=== PATIENT | female | born 1945 | race Caucasian/White ===

== ENCOUNTER 2021-07-28 13:13 | Emergency (ER) | payer MEDICARE, MEDICAID, SELFPAY ==
[2021-07-28 13:23] VITALS: BP 141/62; PULSE 82; RESP 13; O2SAT 97; BMI 27.2
--- NOTE | 2021-07-28 13:55 | ECG_ITS ---
[facility] Test Date: 2021-07-28 Pat Name: Johanna Baldwin Department: Room: Gender: Female Senior Radiation Protection Technician: : 1945 Requested By: Tommie Brian Order Number: [id number] Ben MD: Risa Sheikh M.D. Measurements Intervals [place] Rate: 90 P: 62 [place]: 188 QRS: 31 QRSD: 83 T: 64 QT: 358 QTc: 440 Interpretive Statements SINUS RHYTHM Compared to ECG 04/29/2018 13:58:31 Ectopic atrial rhythm no longer present Atrial abnormality no longer present Left-axis deviation no longer present ST (T wave) deviation no longer present Electronically Signed On 07-29-2021 19:53:19 MONITOR CAR OPERATOR by Risa Sheikh M.D. [email or web address]/[id number] f
--- NOTE | 2021-07-28 14:16 | W.ED.SYNCOPE ---
HPI - Syncope General: Chief Complaint: Syncope Stated Complaint: SYNCOPAL EPISODE Time Seen by Provider: 07/28/21 13:46 History of Present Illness: HPI narrative: 75-year-old female brought in by EMS from a local residential. She really cannot give any meaningful information she has Alzheimer's dementia. Almost every question I asked her she tells me that she is fine. A few questions she answered yes and no to when I am not sure I get any real accurate information from her. EMS reported that the residential and called a nurse went into her room there and she seemed unresponsive he did a sternal rub and said she did not have a pulse and then she suddenly became responsive they have called EMS when EMS arrived she was eating lunch in the dining room. When she arrives here she is afebrile her vital signs are stable and she has no obvious evidence of any injury or problem. Again she denies everything and tells me she is fine but it is very doubtful that she has any real understanding of the questions I am asking her. Associated symptoms: Deny abdominal pain, chest pain, fever(s) or short of breath History: other (dementia) Review of Systems Const: Denies: fever(s), chills, body aches, change in appetite, fatigue or malaise ENMT: Denies: throat pain, ear or mastoid pain, nasal discharge or nasal congestion Card: Denies: chest pain Resp: Denies: dyspnea, productive cough or non-productive cough GI: Denies: abdominal pain : Denies: flank pain, difficulty voiding, dysuria, urinary frequency or urinary urgency Skin/Breast: Denies: rash or pruritus PFSH ED PFSH: Medical History Hyperlipidemia Obesity Surgical History S/P cataract surgery Family History Other Cancer Social History Smoking and tobacco status: never smoked Alcohol intake: never Housing: Correction Physical Exam Const: COMMON NORMALS: no acute distress GENERAL APPEARANCE: cooperative ORIENTATION/CONSCIOUSNESS: Yes awake HENMT: COMMON NORMALS: normocephalic, atraumatic and hearing grossly normal bilaterally HEAD & SCALP: normocephalic and atraumatic Eye: COMMON NORMALS: Equal, round and reactive pupils present, EOMs intact bilaterally, conjunctivae normal and no scleral icterus CONJUNCTIVA: Yes conjunctivae normal PUPIL: Yes Equal, round and reactive pupils present Neck/C-Spine: COMMON NORMALS: no JVD Resp: COMMON NORMALS: normal respiratory effort, No retractions, No use of accessory muscles and clear to auscultation bilaterally AUSCULTATION: clear to auscultation bilaterally Cardio: COMMON NORMALS: no JVD, regular rate, regular rhythm and No murmurs present (Cardio) RATE: regular rate RHYTHM: regular rhythm GI: COMMON NORMALS: Soft to palpation and No hepatosplenomegaly present AUSCULTATION: Yes normoactive bowel sounds PALPATION: Yes Soft to palpation, No Tenderness to palpation present (GI), No Guarding due to palpation present (GI) and Yes No hepatosplenomegaly present Extremity: COMMON NORMALS: normal to inspection, capillary refill normal, no clubbing, cyanosis or edema, no calf tenderness and no pedal edema Skin: COMMON NORMALS: no rashes or lesions noted GENERAL SKIN EXAM: no rashes or lesions noted Course Vital Signs: Vital signs: Vital Signs Pulse Rate 82 07/28/21 13:23 Respiratory Rate 13 07/28/21 13:23 Blood Pressure 141/62 07/28/21 13:23 Pulse Oximetry 97 07/28/21 13:23 MDM - Syncope MDM Narrative: Medical decision making narrative: No focal neurologic deficits at this time. Patient has Alzheimer's. No other abnormalities. discharge back to the residential. Lab Data: Labs: Lab Results 07/28/21 07/28/21 14:22 14:22 WBC 6.3 10^3/uL 10^3/ uL (4.0-10.0) RBC 4.24 10^6/uL 10^6 /uL (4.1-5.3) Hgb 12.7 g/dL g/dL (11.5-15.3) Hct 40.0 % % (37.0-47.0) MCV 94.3 fl fl (81-99) MCH 30.0 pg pg (28.0-34.0) MCHC 31.8 g/dL g/dL (30.0-36.0) RDW 15.1 % % (12.1-15.1) Plt Count 207 10^3/cmm 10^3 /cmm (130-400) MPV 12.5 fL H fL (7.4-10.4) Neut % (Auto) 70.0 % % Lymph % (Auto) 15.7 % % [place] % (Auto) 12.4 % % Eos % (Auto) 0.8 % % Baso % (Auto) 0.8 % % Neut # (Auto) 4.42 10^3/uL 10^3 /uL (1.8-7.7) Lymph # (Auto) 1.0 10^3/uL 10^3/ uL (0.8-4.8) [place] # (Auto) 0.8 10^3/uL 10^3/ uL (0.2-0.9) Eos # (Auto) 0.1 10^3/uL 10^3/ uL (0.0-0.8) Baso # (Auto) 0.1 10^3/uL 10^3/ uL (0.0-0.1) Nucleated RBC % (a uto) 0 % % Nucleated RBCs # 0.0 /100WBC /100W BC Sodium 139 mmol/L mmol/L (136-145) Potassium 4.3 mmol/L mmol/L (3.5-5.1) Chloride 101 mmol/L mmol/L (98-107) Carbon Dioxide 23 mmol/L mmol/L (22-29) Anion Gap 19.3 H (5-19) BUN 14 mg/dL mg/dL (8-23) Creatinine 0.9 mg/dL mg/dL (0.5-0.9) GFR Calculation Not Reportable Glucose 116 mg/dL H mg/dL (65-115) Calculated Osmolal ity 289 mOsm/kg mOsm/ kg (285-295) Calcium 9.3 mg/dL mg/dL (8.5-10.5) Discharge Plan Discharge Patient Disposition: Home Clinical Impression: Alzheimer's dementia Condition: Stable Prescriptions: No Action olanzapine [Zyprexa] 5 mg tablet 5 mg PO BID RF: 0 olanzapine [Zyprexa] 2.5 mg tablet 2.5 mg PO .COMPLEX Qty: 30 RF: 0 senna 8.6 mg capsule 8.6 mg PO DAILY PRNRF: 0 amlodipine [Norvasc] 5 mg tablet 5 mg PO DAILY RF: 0 simvastatin [Zocor] 20 mg tablet 20 mg PO DAILY RF: 0 acetaminophen [Tylenol Arthritis Pain] 650 mg tablet extended release 650 mg PO .q4hrs PRNRF: 0 bisacodyl 5 mg tablet 10 mg PO DAILY RF: 0 magnesium hydroxide [Milk of Magnesia] 400 mg/5 mL suspension 30 ml PO DAILY PRNRF: 0 calcium carbonate 400 mg/5 mL suspension 30 mg PO .q4hrs PRNRF: 0 quetiapine [Seroquel] 25 mg tablet 25 mg PO DAILY Qty: 30 RF: 0 Discharge Orders: Discharge ED (Routine); Ordered 07/28/21 Ordered By: Tommie Marshall Referrals: Fantasma Mathews MD [Primary Care Provider] - Patient Instructions: Opioid Safety Coding Level of Care Code ED [employer] Union Business Representative for Eileen Fwd Exam Comprehensive
[2021-07-28 14:31] LABS: Basophils # 0.1 10^3/uL (0.0-0.1); Basophils % 0.8 %; Eosinophils # 0.1 10^3/uL (0.0-0.8); Eosinophils % 0.8 %; Hemoglobin 12.7 g/dL (11.5-15.3); Lymphocytes % 15.7 %; Mean Corpuscular HGB Conc 31.8 g/dL (30.0-36.0); Mean Corpuscular Volume 94.3 fl (81-99); Mean Platelet Volume 12.5 fL (7.4-10.4); Monocytes # 0.8 10^3/uL (0.2-0.9); Monocytes % 12.4 %; Neutrophils # 4.42 10^3/uL (1.8-7.7); Nucleated Red Blood Cells % 0 %; Platelet Count 207 10^3/cmm (130-400); Red Blood Count 4.24 10^6/uL (4.1-5.3); Red Cell Distribution Width 15.1 % (12.1-15.1); White Blood Count 6.3 10^3/uL (4.0-10.0)
[2021-07-28 15:04] LABS: Anion Gap 19.3 (5-19); Blood Urea Nitrogen 14 mg/dL (8-23); Calcium 9.3 mg/dL (8.5-10.5); Carbon Dioxide 23 mmol/L (22-29); Chloride 101 mmol/L (98-107); Glucose 116 mg/dL (65-115); Osmolality Calculated 289 mOsm/kg (285-295); Potassium 4.3 mmol/L (3.5-5.1); Sodium 139 mmol/L (136-145)
== END 2021-07-28 15:51 | disposition home or self-care (01) ==
PROVIDERS: Emergency Provider Family Medicine; PCP Internal Medicine
DX: G30.9 Alzheimer's disease, unspecified (principal); F02.80 Dementia in other diseases classified elsewhere, unspecified severity, without behavioral disturbance, psychotic disturbance, mood disturbance, and anxiety; E78.5 Hyperlipidemia, unspecified
CPT/HCPCS: 36415; 80048; 85025; 93005; 99282

== ENCOUNTER 2022-03-10 11:56 | Outpatient (CLI) | payer MEDICARE, MEDICAID, SELFPAY ==
--- NOTE | 2022-03-10 13:30 | XR_ITS ---
WS: [id number] SCREENING DEXA SCAN [employer] CLINICAL INFORMATION: SCREENING COMPARISON: None. FINDINGS: The L1-L4 bone mineral density measures 1.237 g/cm2. This corresponds to a T score score of 0.5 and Z score of 1.7. Left femoral neck bone mineral density measures 0.832 g/cm2. This corresponds to a T score of -1.4 an d Z score of 0.1. Right femoral neck bone mineral density measures 0.737 g/cm2. This corresponds to a T score -2.1of an d Z score of -0.6. Mean femoral neck bone mineral density measures 0.785 g/cm2. This corresponds to a T score of -1.8 an d Z score of -0.2. XR/XR DEXA axial skeleton* 60095 IMPRESSION: Normal bone mineralization lumbar spine although spuriously elevated due to end plate sclerosis. Osteopenia in the femoral necks. Patient's FRAX calculated 10 year probability for major osteoporotic fracture i s 19.4 % and osteoporotic hip fracture is 7.0%.
== END 2022-03-10 11:57 | disposition home or self-care (01) ==
LOC: RAD 11:58
PROVIDERS: PCP Internal Medicine; Visit Provider Nurse Practitioner Family
DX: U07.1 COVID-19 (principal); E66.9 Obesity, unspecified; E78.5 Hyperlipidemia, unspecified; G30.9 Alzheimer's disease, unspecified; I10 Essential (primary) hypertension
CPT/HCPCS: 77080; 99213

== ENCOUNTER 2022-11-10 16:22 | Outpatient (CLI) | payer MEDICARE, MEDICAID, SELFPAY ==
[2022-11-10 16:56] LABS: Anion Gap 13.2 (5-19); Blood Urea Nitrogen 12 mg/dL (8-23); Calcium 8.7 mg/dL (8.5-10.5); Carbon Dioxide 29 mmol/L (22-29); Chloride 106 mmol/L (98-107); Glucose 117 mg/dL (65-115); Osmolality Calculated 299 mOsm/kg (285-295); Potassium 4.2 mmol/L (3.5-5.1); Sodium 144 mmol/L (136-145)
== END 2022-11-10 16:23 | disposition home or self-care (01) ==
PROVIDERS: PCP Internal Medicine; Visit Provider Internal Medicine
DX: Z01.89 Encounter for other specified special examinations (principal)
CPT/HCPCS: 80048

== ENCOUNTER → 2023-05-17 14:06 | Outpatient (BNVA) | payer MEDICARE, MEDICAID, SELFPAY | PROVIDERS: PCP Internal Medicine; Visit Provider Internal Medicine Cardiovascular Disease | DX: I10 Essential (primary) hypertension (principal) | CPT/HCPCS: 99214 ==

== ENCOUNTER 2024-01-05 16:35 | Inpatient (IN) | payer MEDICARE, MEDICAID, SELFPAY ==
[2024-01-05 16:36] VITALS: BP 160/71; PULSE 89; RESP 16; TEMP 36.7; O2SAT 95; BMI 34.3
--- NOTE | 2024-01-05 16:38 | ECG_ITS ---
[facility] Test Date: 2024-01-05 Pat Name: Johanna Baldwin Department: Room: Gender: Female Forming Yardage Control Operator: : 1945 Requested By: Tommie Brian Order Number: [id number] Ben MD: Buck Brothers M.D. Measurements Intervals [place] Rate: 88 P: 55 [place]: 203 QRS: 34 QRSD: 88 T: 53 QT: 367 QTc: 446 Interpretive Statements SINUS RHYTHM POSSIBLE LEFT ATRIAL ENLARGEMENT [-0.1mV P-WAVE IN V1/V2] NONSPECIFIC T-WAVE ABNORMALITY Compared to ECG 07/28/2021 14:38:50 T-wave abnormality now present Electronically Signed On 01-06-2024 13:38:34 CDT by Buck Brothers M.D. [id number]
--- NOTE | 2024-01-05 16:38 | XRR_ITS ---
PROCEDURE INFORMATION: Exam: XR Chest Exam date and time: 01/05/2024 4:46 PM Age: 78 years old Clinical indication: Dyspnea; Additional info: Dyspnea/cough TECHNIQUE: Imaging protocol: Radiologic exam of the chest. Views: 1 view. COMPARISON: CR XR chest 1V [id number] 04/29/2018 1:58 PM FINDINGS: Lungs: Subtle opacities in the right suprahilar station and left infrahilar station. Pleural spaces: Unremarkable. No pleural effusion. No pneumothorax. Heart/Mediastinum: Unremarkable. No cardiomegaly. Bones/joints: Unremarkable. XR/XR chest 1V portable [id number] IMPRESSION: Subtle opacities in the right suprahilar station and left infrahilar station.
--- NOTE | 2024-01-05 16:49 | ED_ITS ---
HPI - Weakness 2 General: Chief complaint: Weakness Stated complaint: weakness, fever Time Seen by Provider: 01/05/24 16:36 Source: patient Mode of arrival: EMS History of Present Illness: 78-year-old male presents to the emergen cy room with complaints of weakness and fever she comes in from [facility]. She has dementia. EMS reports that they had stated the O2 sat was in the 80% on room air on 2 L they reported she got to 90 on 3 EMS reported she was at 95 or greater. On arrival here on room air she has an oxygen saturation of 92% to 95%. They also reports a temp up to 100.3. [place] temperature on arrival here is 98 1. Patient has dementia. Gives no verbal response to any history. MD Complaint: generalized weakness Review of Systems 2 General: Reports: ROS unobtainable due to mental status Resp: Denies: dyspnea GI: Denies: abdominal pain : Denies: urinary frequency or urinary urgency Musc: Denies: neck pain or back pain Skin/Breast: Denies: rash PFSH ED 2 PFSH: Medical History Obesity Hyperlipidemia Surgical History S/P cataract surgery Family History Other Cancer Social History Smoking and tobacco/nicotine status: never used tobacco/nicotine Alcohol intake: never Substance/Drug Use: never Housing: Care Home Physical Exam 2 Const: GENERAL APPEARANCE: cooperative and comfortable O RIENTATION/CONSCIOUSNESS: Yes awake HENMT: COMMON NORMALS: normocephalic, atraumatic and hearing grossly normal bilaterally HEAD & SCALP: normocephalic and atraumatic Resp: COMMON NORMALS: normal respiratory effort, No retractions and No use of accessory muscles AUSCULTATION: crackles Cardio: COMMON NORMALS: regular rate, regular rhythm and No murmurs present (Cardio) RATE: regular rate RHYTHM: regular rhythm GI: COMMON NORMALS: Soft to palpation and No hepatosplenomegaly present A USCULTATION: Yes normoactive bowel sounds PALPATION: Yes Soft to palpation, No Tenderness to palpation present (GI), No Guarding due to palpation present (GI) and Yes No hepatosplenomegaly present Extremity: COMMON NORMALS: normal to inspection, capillary refill normal, no clubbing, cyanosis or edema, no calf tenderness and no pedal edema Neuro: OTHER: Patient aphasic likely due to her dementia. No verbal response to questions. Per long term report this is baseline Skin: COMMON NORMALS: no rashes or lesions noted GENERAL SKIN EXAM: no rashes or lesions noted Course 2 Vital Signs: Vital signs: Vital Signs Temperature 99.2 F 01/06/24 04:00 Pulse Rate 83 01/06/24 04:00 Respiratory Rate 19 H 01/06/24 04:00 Blood Pressure 118/77 01/06/24 04:00 Pulse Oximetry 92 01/06/24 04:00 Oxygen Delivery Me thod Nasal Cannula 01/06/24 04:00 Oxygen Flow Rate 2 01/05/24 16:36 MDM - Weakness Medical Decision Making Reported fever and hypotension at the nursing however she does not have this while she is here. However she is not able to provide us any history because of her dementia. Chest x-ray there is some subtle opacities possible pneumonia. She also has a mild cystitis. Recommend observation and initiation of IV antibiotics repeat testing and reevaluation. Placed on observation discussed with hospitalist orders written Medical Records I reviewed the patient's medical records. Lab Data I reviewed the patient's lab results. 01/05/24 17:20 01/05/24 17:20 Radiology Impressions Chest X-Ray 01/05/24 16:38 IMPRESSION: Subtle opacities in the right suprahilar station and left infrahilar station. Laboratory Results WBC 9.51 10^3/uL (3.29-11.43) 01/05/24 17:20 RBC 3.73 10^6/uL (3.85-5.65) L 01/05/24 17:20 Hgb 11.20 g/dL (11.27-16.99) L 01/05/24 17:20 Hct 34.2 % (36-47) L 01/05/24 17:20 MCV 91.7 fl (85-98) 01/05/24 17:20 MCH 30.0 pg (27-33) 01/05/24 17:20 MCHC 32.7 g/dL (30-55) 01/05/24 17:20 RDW 15.7 % (12.1-15.1) H 01/05/24 17:20 Plt Count 192 10^3/cmm (157-399) 01/05/24 17:20 MPV 12.4 fL (7.4-10.4) H 01/05/24 17:20 Neut % (Auto) 74.7 % 01/05/24 17:20 Lymph % (Auto) 14.6 % 01/05/24 17:20 [place] % (Auto) 9.0 % 01/05/24 17:20 Eos % (Auto) 0.9 % 01/05/24 17:20 Baso % (Auto) 0.4 % 01/05/24 17:20 Neut # (Auto) 7.09 10^3/uL (1.8-7.7) 01/05/24 17:20 Lymph # (Auto) 1.4 10^3/uL (0.8-4.8) 01/05/24 17:20 [place] # (Auto) 0.9 10^3/uL (0.2-0.9) 01/05/24 17:20 Eos # (Auto) 0.1 10^3/uL (0.0-0.8) 01/05/24 17:20 Baso # (Auto) 0.0 10^3/uL (0.0-0.1) 01/05/24 17:20 Nucleated RBC % (auto) 0 % 01/05/24 17:20 Nucleated RBCs # 0.0 /100WBC 01/05/24 17:20 Sodium 139 mmol/L (136-145) 01/05/24 17:20 Potassium 3.6 mmol/L (3.5-5.1) 01/05/24 17:20 Chloride 101 mmol/L (98-107) 01/05/24 17:20 Carbon Dioxide 26 mmol/L (22-29) 01/05/24 17:20 Anion Gap 15.6 (5-19) 01/05/24 17:20 BUN 25 mg/dL (8-23) H 01/05/24 17:20 Creatinine 0.8 mg/dL (0.5-0.9) 01/05/24 17:20 GFR Calculation Not Reportable 01/05/24 17:20 Glucose 126 mg/dL (65-115) H 01/05/24 17:20 Calculated Osmolality 294 mOsm/kg (285-295) 01/05/24 17:20 Lactic Acid 0.7 mmol/L (0.5-2.2) 01/05/24 17:20 Calcium 9.2 mg/dL (8.5-10.5) 01/05/24 17:20 Total Bilirubin 0.6 mg/dL (0.15-1.2) 01/05/24 17:20 AST 27 U/L (0-32) 01/05/24 17:20 ALT 17 U/L (0-33) 01/05/24 17:20 Alkaline Phosphatase 109 U/L (35-105) H 01/05/24 17:20 NT-Pro-B Natriuret Pep 433 pg/mL (0-450) 01/05/24 17:20 Total Protein 7.2 g/dL (6.6-8.7) 01/05/24 17:20 Albumin 3.8 g/dL (3.5-5.2) 01/05/24 17:20 Globulin 3.4 g/dL (1.3-4.6) 01/05/24 17:20 Procalcitonin 0.10 ng/mL (0-0.5) 01/05/24 17:20 Urine Color Yellow (Yellow) 01/05/24 17:31 Urine Appearance Clear (CLEAR) 01/05/24 17:31 Urine pH 5 (5-7) 01/05/24 17:31 Ur Specific [place] 1.015 (1.005-1.030) 01/05/24 17:31 Urine Protein Neg (Negative) 01/05/24 17:31 Urine Glucose (UA) Norm (Normal) 01/05/24 17:31 Urine Ketones 1+ (Negative) H 01/05/24 17:31 Urine Blood 2+ (Negative) H 01/05/24 17:31 Urine Nitrate Negative (Negative) 01/05/24 17:31 Urine Bilirubin Neg (Negative) 01/05/24 17:31 Urine Urobilinogen Norm mg/dL (Negative) 01/05/24 17:31 Ur Leukocyte Esterase Trace (Negative) H 01/05/24 17:31 Urine RBC None /hpf (0-2) 01/05/24 17:31 Urine WBC 15-25 /hpf (0-5) H 01/05/24 17:31 Ur Squamous Epith Cells 0-4 /hpf (0-5) H 01/05/24 17:31 Amorphous Sediment Not Reportable 01/05/24 17:31 Urine Bacteria 2+ /hpf (NONE) H 01/05/24 17:31 Hyaline Casts 0-4 /lpf H 01/05/24 17:31 Urine Mucus 1+ /hpf 01/05/24 17:31 All radiology interpretation(s) finalized by discharge Discharge Plan Discharge Patient Disposition: Admitted As Inpatient Admit Provider: Sanjiv Betancourt Clinical Impression: Pneumonia, Cystitis, Dementia Condition: Stable Discharge Diet: Usual diet Discharge Activity: Resume usual activity Coding Level of Care Code ED Corporate Tax Preparer for Eileen Mitchell
[2024-01-05 17:33] LABS: Basophils % 0.4 %; Eosinophils # 0.1 10^3/uL (0.0-0.8); Eosinophils % 0.9 %; Hematocrit 34.2 % (36-47); Lymphocytes # 1.4 10^3/uL (0.8-4.8); Lymphocytes % 14.6 %; Mean Corpuscular HGB Conc 32.7 g/dL (30-55); Mean Corpuscular Volume 91.7 fl (85-98); Mean Platelet Volume 12.4 fL (7.4-10.4); Monocytes # 0.9 10^3/uL (0.2-0.9); Neutrophils # 7.09 10^3/uL (1.8-7.7); Neutrophils % 74.7 %; Nucleated Red Blood Cells % 0 %; Platelet Count 192 10^3/cmm (157-399); Red Blood Count 3.73 10^6/uL (3.85-5.65); Red Cell Distribution Width 15.7 % (12.1-15.1); White Blood Count 9.51 10^3/uL (3.29-11.43)
[2024-01-05 17:43] VITALS: PULSE 82; O2SAT 93
[2024-01-05 17:53] LABS: Alanine Aminotransferase 17 U/L (0-33); Albumin Level 3.8 g/dL (3.5-5.2); Alkaline Phosphatase 109 U/L (35-105); Anion Gap 15.6 (5-19); Aspartate Amino Transferase 27 U/L (0-32); Blood Urea Nitrogen 25 mg/dL (8-23); Calcium 9.2 mg/dL (8.5-10.5); Carbon Dioxide 26 mmol/L (22-29); Chloride 101 mmol/L (98-107); Creatinine Clr Calc Pharmacy 68.2754; Globulin 3.4 g/dL (1.3-4.6); Glucose 126 mg/dL (65-115); Osmolality Calculated 294 mOsm/kg (285-295); Potassium 3.6 mmol/L (3.5-5.1); Sodium 139 mmol/L (136-145); Total Bilirubin 0.6 mg/dL (0.15-1.2); Total Protein 7.2 g/dL (6.6-8.7)
[2024-01-05 18:04] LABS: Add Urine Microscopic? YES; Bilirubin Urine Neg (Negative); Blood Urine 2+ (Negative); Glucose Urine UA Norm (Normal); Ketones Urine 1+ (Negative); Leukocyte Esterase Urine Trace (Negative); Nitrate Urine Negative (Negative); Protein Urine Neg (Negative); Specific Gravity, Urine 1.015 (1.005-1.030); Urine Appearance Clear (CLEAR); Urine Color Yellow (Yellow); Urobilinogen Urine Norm (Negative); pH Urine 5 (5-7)
[2024-01-05 18:12] LABS: Add Urine Culture? Yes; Bacteria Urine 2+ /hpf; Hyaline Casts Urine 0-4 /lpf; Mucus Urine 1+ /hpf; Squamous Epithelial Cell Urine 0-4 /hpf (0-5); WBC Urine 15-25 /hpf (0-5)
[2024-01-05 18:57] LABS: Lactic Sepsis W/Reflex 0.7 mmol/L (0.5-2.2)
[2024-01-05 19:07] LABS: NT Pro B Type Natriuretic Pept 433 pg/mL (0-450)
[2024-01-05] MEDS: meropenem 1,000 MG in sodium chloride 0.9% (plus) 50 ML 100 MG IV ×2 (19:18→23:19)
[2024-01-05 19:58] VITALS: BP 154/64; PULSE 64; RESP 16; O2SAT 91
--- NOTE | 2024-01-05 19:59 | P.HP_ITS ---
Providers/Chief Complaint 2 Admitting Physician: Sanjiv Betancourt MD Primary Care Provider: Fantasma Mathews MD Chief Complaint: weakness, fever History of Present Illness Johanna Baldwin is a 78 year old female who presents for further evaluation of generalized weakness and fever. She has a history of dementia, non verbal. History from patient is limited. Per reports, she was noted to be hypoxic- 80% on room air and to have a temperature of 100.3. In the ER, she was found to have pneumonia and possible UTI. Review of Systems 2 General: Reports: ROS unobtainable due to mental status Medications/Allergies Home Medications Medication Instructions Recorded Confirmed Last Taken Type acetaminophen 650 mg 650 mg PO .q4hrs PRN 11/12/19 05/28/22 Unknown History tablet,extended release (Tylenol Arthritis Pain) amlodipine 5 mg tablet (Norvasc) 5 mg PO DAILY 11/12/19 05/28/22 Unknown History bisacodyl 5 mg tablet 10 mg PO DAILY 11/12/19 05/28/22 Unknown History calcium carbonate 400 mg/5 mL oral 30 mg PO .q4hrs PRN 11/12/19 05/28/22 Unknown History suspension magnesium hydroxide 400 mg/5 mL 30 ml PO DAILY PRN 11/12/19 05/28/22 Unknown History oral suspension (Milk of Magnesia) sennosides 8.6 mg capsule (senna) 8.6 mg PO DAILY PRN 11/12/19 05/28/22 Unknown History simvastatin 20 mg tablet (Zocor) 20 mg PO DAILY 11/12/19 05/28/22 Unknown History olanzapine 2.5 mg tablet (Zyprexa) 2.5 mg PO .COMPLEX #30 tabs 12/19/20 05/28/22 Unknown Rx olanzapine 5 mg tablet (Zyprexa) 5 mg PO BID 12/19/20 05/28/22 Unknown History dextromethorphan-guaifenesin 10 10 ml PO Q4H PRN 09/30/21 05/28/22 Unknown History mg-100 mg/5 mL oral liquid (Julia-Tussin DM) loratadine 10 mg tablet (Claritin) 10 mg PO DAILY 09/30/21 05/28/22 Unknown History quetiapine 50 mg tablet 75 mg (1.5 x 50 mg) PO BID #60 tabs 12/07/21 05/28/22 Unknown Rx cefdinir 300 mg capsule 300 mg PO BID #14 caps 01/05/24 Unknown Rx Allergies Allergy/AdvReac Type Severity Reaction Status Date / Time bee pollen Allergy ALGY-Anaphy Verified 01/05/24 16:43 laxis lidocaine Allergy ALGY-Swell Verified 01/05/24 16:43 Lip/Tongue/Throat Penicillins Allergy ALGY-Anaphy Verified 01/05/24 16:43 laxis PFSH Acute 2 PFSH: Medical History Obesity Hyperlipidemia Surgical History S/P cataract surgery Family History Other Cancer Social History Smoking and tobacco/nicotine status: never used tobacco/nicotine Alcohol intake: never Substance/Drug Use: never Housing: Shelter Vitals/I&O/Wt Last Vital Signs Temp 98.1 F 01/05/24 16:36 Pulse 64 01/05/24 19:58 Resp 16 01/05/24 19:58 BP 154/64 01/05/24 19:58 Pulse Ox 91 01/05/24 19:58 O2 Del Method Room Air 01/05/24 17:43 O2 Flow Rate 2 01/05/24 16:36 Weight last 48 hrs Weight 77.111 kg Physical Exam 2 Const: COMMON NORMALS: no acute distress, patient oriented x3 and alert HENMT: COMMON NORMALS: normocephalic, atraumatic, external ears normal, Normal external nose present, moist oral mucous membranes and oropharynx normal HEAD & SCALP: normocephalic and atraumatic NOSE: Normal external nose present E XTERNAL EAR: Yes external ears normal Eye: COMMON NORMALS: Equal, round and reactive pupils present, EOMs intact bilaterally, conjunctivae normal and no scleral icterus CONJUNCTIVA: Yes conjunctivae normal PUPIL: Yes Equal, round and reactive pupils present Neck/C-Spine: COMMON NORMALS: full ROM, no lymphadenopathy and no JVD Chest: COMMONS NORMALS: normal inspection of the chest Resp: COMMON NORMALS: normal respiratory effort and clear to auscultation bilaterally AUSCULTATION: clear to auscultation bilaterally OTHER: No wheezes or crcakles Cardio: COMMON NORMALS: no JVD, regular rate, regular rhythm, S1 normal heart sound present and S2 normal heart sound present RATE: regular rate RHYTHM: regular rhythm HEART SOUNDS: S1 normal heart sound present and S2 normal heart sound present GI: COMMON NORMALS: Normal to inspection, nondistended, normoactive bowel sounds present, Soft to palpation and non-tender PALPATION: Yes Soft to palpation Extremity: COMMON NORMALS: normal to inspection and no pedal edema Neuro: COMMON NORMALS: patient oriented x3 SENSORIUM/ORIENTATION: Yes alert OTHER: Nonverbal at baseline, No gross focal deficits Data 01/05/24 17:20 01/05/24 17:20 Micro: Microbiology 01/05/24 17:16 Blood Culture - Preliminary Blood SPECIMEN COLLECTED 01/05/24 17:20 Blood Culture - Preliminary Blood SPECIMEN COLLECTED A&P Assessment and plan (1) Pneumonia: #Acute Hypoxic Respiratory Insufficiency -Hypoxia is in the setting of pneumonia. -Chest imaging shows subtle opacities in the right suprahilar and left infrahilar region -Patient received meropenem in the ER, will continue. -Wean oxygen ass tolerated (2) Cystitis: -Continue antibiotics -Follow urine cultures (3) Alzheimer's dementia: -Stable -Patient non verbal at baseline (4) Essential hypertension: -Resume antihypertensives (5) Hyperlipidemia: Qualifiers: Hyperlipidemia type: unspecified Qualified Code(s): E78.5 - Hyperlipidemia, unspecified Attestations 2 Medical Necessity Statement*: Stay expected to be less than 2 midnights Coding Level of Care Code Acute Code for [facility] Diagnoses Pneumonia J18.9 Cystitis N30.90 Alzheimer's dementia G30.9; F02.80 Essential hypertension I10 Hyperlipidemia, unspecified hyperlipidemia type E78.5 Hyperlipidemia type: unspecified
--- NOTE | 2024-01-05 22:20 | PC.NURSE ---
Unable to do accurate I&O, pt incontinent and no gatica.
[2024-01-05] MEDS: enoxaparin 40 mg/0.4 mL Syringe SUBCUT (23:20)
[2024-01-06] VITALS (11 sets, daily range): BP systolic 112–131; BP diastolic 64–77; PULSE 81–99; RESP 16–19; TEMP 36.7–37.3; O2SAT 90–99
[2024-01-06] MEDS: meropenem 1,000 MG in sodium chloride 0.9% (plus) 50 ML 100 MG IV ×3 (06:22→21:53)
--- NOTE | 2024-01-06 09:04 | PC.CHAP ---
Pastoral Care Encounter/Spiritual Assessment Type of Contact [] Declined capacity planning analyst visit [] Patient/Family/Request visit [] Outpatient visit [] Follow-up visit [] Physician referral [] Code/Alert [x] Routine visit [] Staff referral [] Actively dying [] Patient sleeping [] Family support [] [] Out of room [] Palliative care [] [] Receiving care in room [] Pre-surgical visit [] Trauma [] Long length of stay [] ICU visit [] Other: Relational/Emotional Strength [x] Patient feels connected with others/family/visitors/staff [] Distress [] Loneliness/isolation [] Abandonment Spirituality of Patient [x] Person of Shireen [] Attends Restorationist of their Shireen [x] Believes in Prayer [] Reads Bible or Taoism materials [] There are Spiritual issues to be addressed Concrete Placement Equipment Operator Interventions [x] Prayer [x] Active listening [] Non-anxious presence [x] Spiritual/emotional support [] Crisis/trauma care [] Spiritual counseling [] Bereavement support [] Provided bereavement packet [] Provided Bible/devotional materials [] Provided toy/stuffed animal, coloring book to patient or family member [] Provided Communion [] Anointing/[place] [] Salvation [x] Completed spiritual assessment [] Other: Impact on Illness or Injury [] Angry [] Fearful [] Anxious [] Often cries [] Exhaustion [] Unable to work [] Unable to attend adventism [] Unable to walk/stand [] Unable to read [] Unable to drive [] Unable to eat/drink [] Unable to sleep [] Unable to be with family [] Patient intubated [] Other: Summary Time spent with patient 5 min
--- NOTE | 2024-01-06 10:44 | ECG_ITS ---
[facility] Test Date: 2024-01-06 Pat Name: Johanna Baldwin Department: Room: 277 Gender: Female Barista: : 1945 Requested By: Sanjiv Betancourt Order Number: [id number] Reading MD: Buck Brothers M.D. Measurements Intervals [place] Rate: 81 P: 69 DC: 207 QRS: 43 QRSD: 87 T: 56 QT: 372 QTc: 434 Interpretive Statements SINUS RHYTHM Compared to ECG 01/05/2024 16:43:45 T-wave abnormality no longer present Electronically Signed On 01-06-2024 13:44:04 CDT by Buck Brothers M.D. [id number]
[2024-01-06 12:10] LABS: Troponin(5th) Baseline 27 ng/L (0-10)
--- NOTE | 2024-01-06 12:44 | ECG_ITS ---
[facility] Test Date: 2024-01-06 Pat Name: Johanna Baldwin Department: Room: 277 Gender: Female Sponsorship Manager: : 1945 Requested By: Sanjiv Betancourt Order Number: [id number] Reading MD: Buck Brothers M.D. Measurements Intervals [place] Rate: 97 P: 62 [place]: 192 QRS: 33 QRSD: 84 T: 29 QT: 351 QTc: 446 Interpretive Statements SINUS RHYTHM Compared to ECG 01/06/2024 11:27:21 No significant changes Electronically Signed On 01-06-2024 14:02:49 CDT by Buck Brothers M.D. [id number]
--- NOTE | 2024-01-06 13:43 | PC.SLP ---
Nursing and COBOL DEVELOPER went to the patient's room. Pt was lying on her back, leaning on her left side. The patient was noted to be chewing food that was pocketed in her mouth. The patient was noted to drinks of tea that was on the tray, and gurgling was instantly noted. The patient refused to open oral cavity in order for the therapist to assess pocketing. Suctioning required by nursing to remove pocketed food. Therapist recommends NPO at this time. Will need to re-assess tomorrow.
--- NOTE | 2024-01-06 14:27 | P.PN_ITS ---
Subjective 2 Subjective: Patient was seen this morning, she is nonverbal, but she did have breakfast this morning, I have difficulty having her following instructions and commands, according to nursing staff, about a week ago patient was able to follow commands, was able to ambulate with a walker, however in the last week her condition has deteriorated, she remains nonverbal at her baseline, Vitals/I&O/Wt Last Vital Signs Temp 98.1 F 01/06/24 12:00 Pulse 81 01/06/24 12:00 Resp 17 01/06/24 12:00 BP 131/77 01/06/24 12:00 Pulse Ox 92 01/06/24 11:45 O2 Del Method Nasal Cannula 01/06/24 11:45 O2 Flow Rate 2 01/06/24 11:45 01/05/24 01/06/24 01/06/24 22:59 06:59 14:59 Intake Total 50 / 50 50 / 100 408 / 408 Balance 50 / 50 50 / 100 408 / 408 Weight last 48 hrs Weight 96.814 kg Weight 96.162 kg Weight 77.111 kg Physical Exam 2 Const: COMMON NORMALS: no acute distress Neck/C-Spine: COMMON NORMALS: no JVD Resp: COMMON NORMALS: normal respiratory effort, No retractions and No use of accessory muscles AUSCULTATION: wheezes Cardio: COMMON NORMALS: no JVD, regular rate, regular rhythm, S1 normal heart sound present and S2 normal heart sound present RATE: regular rate RHYTHM: regular rhythm HEART SOUNDS: S1 normal heart sound present and S2 normal heart sound present GI: COMMON NORMALS: Normal to inspection, nondistended, normoactive bowel sounds present and non-tender Extremity: COMMON NORMALS: no pedal edema Psych: COMMON NORMALS: mental status grossly normal Data 01/05/24 17:20 01/05/24 17:20 Micro: Microbiology 01/05/24 17:16 Blood Culture - Preliminary Blood SPECIMEN COLLECTED 01/05/24 17:20 Blood Culture - Preliminary Blood SPECIMEN COLLECTED A&P Assessment and plan (1) Pneumonia: #Acute Hypoxic Respiratory Insufficiency -Hypoxia is in the setting of pneumonia. -Chest imaging shows subtle opacities in the right suprahilar and left infrahilar region -Patient received meropenem in the ER, will continue. -Wean oxygen ass tolerated (2) Cystitis: -Continue antibiotics -Follow urine cultures (3) Alzheimer's dementia: -Stable -Patient non verbal at baseline (4) Essential hypertension: -Resume antihypertensives (5) Hyperlipidemia: Qualifiers: Hyperlipidemia type: unspecified Qualified Code(s): E78.5 - Hyperlipidemia, unspecified Plan Plan for today PT OT, neurochecks, continue meropenem, troponin series, Attestations 2 Medical Necessity Statement*: Patient requires hospitalization for acute hypoxic respiratory failure secondary to pneumonia Diagnoses Pneumonia J18.9 Cystitis N30.90 Alzheimer's dementia G30.9; F02.80 Essential hypertension I10 Hyperlipidemia, unspecified hyperlipidemia type E78.5 Hyperlipidemia type: unspecified
[2024-01-06 14:34] LABS: Troponin 5 2HR 26.54 ng/L (0-10)
[2024-01-06 14:36] LABS: Troponin 5 2HR Delta -0.46 ABS# (0-10)
--- NOTE | 2024-01-06 16:44 | ECG_ITS ---
[facility] Test Date: 2024-01-06 Pat Name: Johanna Baldwin Department: Room: 277 Gender: Female Capture Manager: : 1945 Requested By: Sanjiv Betancourt Order Number: [id number] Ben MD: Buck Brothers M.D. Measurements Intervals [place] Rate: 85 P: 64 [place]: 213 QRS: 30 QRSD: 81 T: 50 QT: 363 QTc: 434 Interpretive Statements SINUS RHYTHM WITH FIRST DEGREE AV BLOCK Compared to ECG 01/06/2024 13:28:40 First degree AV block now present Electronically Signed On 01-07-2024 8:11:16 CDT by Buck Brothers M.D. [id number]
[2024-01-06] MEDS: budesonide 0.5 mg/2 mL Neb INHALATION (19:46)
[2024-01-06] MEDS: enoxaparin 40 mg/0.4 mL Syringe SUBCUT (21:53)
[2024-01-07] VITALS (11 sets, daily range): BP systolic 107–154; BP diastolic 67–83; PULSE 62–100; RESP 16–20; TEMP 36.4–37.2; O2SAT 92–96; BMI 43.1
[2024-01-07] MEDS: meropenem 1,000 MG in sodium chloride 0.9% (plus) 50 ML 100 MG IV ×3 (05:19→22:26)
[2024-01-07 06:11] LABS: Basophils % 0.5 %; Eosinophils # 0.2 10^3/uL (0.0-0.8); Eosinophils % 2.1 %; Hematocrit 32.7 % (36-47); Lymphocytes % 26.5 %; Mean Corpuscular HGB Conc 31.2 g/dL (30-55); Mean Corpuscular Hemoglobin 29.9 pg (27-33); Mean Corpuscular Volume 95.9 fl (85-98); Mean Platelet Volume 12.5 fL (7.4-10.4); Monocytes # 0.8 10^3/uL (0.2-0.9); Monocytes % 10.6 %; Neutrophils # 4.47 10^3/uL (1.8-7.7); Neutrophils % 59.9 %; Nucleated Red Blood Cells % 0 %; Platelet Count 194 10^3/cmm (157-399); Red Blood Count 3.41 10^6/uL (3.85-5.65); Red Cell Distribution Width 15.9 % (12.1-15.1); White Blood Count 7.47 10^3/uL (3.29-11.43)
[2024-01-07 06:34] LABS: Blood Urea Nitrogen 22 mg/dL (8-23); Calcium 8.9 mg/dL (8.5-10.5); Carbon Dioxide 29 mmol/L (22-29); Chloride 107 mmol/L (98-107); Creatinine Clr Calc Pharmacy 85.7207; Glucose 102 mg/dL (65-115); Osmolality Calculated 304 mOsm/kg (285-295); Sodium 145 mmol/L (136-145)
[2024-01-07] MEDS: budesonide 0.5 mg/2 mL Neb INHALATION ×2 (08:19→20:14)
[2024-01-07] MEDS: ipratropium-albuterol 3 mL Neb INHALATION ×2 (08:20→20:14)
[2024-01-07] MEDS: OLANZapine 10 mg TABLET PO ×2 (09:24→17:50)
[2024-01-07] MEDS: acetaminophen 325 mg Tablet 650 MG PO (09:24)
[2024-01-07] MEDS: sertraline 100 mg Tablet PO (09:24)
[2024-01-07] MEDS: risperiDONE 1 mg Tablet PO ×2 (09:24→17:50)
[2024-01-07] MEDS: atorvastatin 40 mg Tablet 20 MG PO (09:25)
--- NOTE | 2024-01-07 11:58 | P.PN_ITS ---
Subjective 2 Subjective: Patient was seen this morning, is currently she sitting up in a chair, continues to have wheezing and coughing, on 3 L, normotensive Vitals/I&O/Wt Last Vital Signs Temp 97.8 F 01/07/24 07:36 Pulse 70 01/07/24 08:27 Resp 20 H 01/07/24 08:20 BP 120/76 01/07/24 07:36 Pulse Ox 93 01/07/24 08:20 O2 Del Method Nasal Cannula 01/07/24 08:20 O2 Flow Rate 3 01/07/24 08:20 01/06/24 01/07/24 01/07/24 22:59 06:59 14:59 Intake Total 100 / 748 110 / 858 Balance 100 / 748 110 / 858 Weight last 48 hrs Weight 96.814 kg Weight 96.814 kg Weight 96.162 kg Weight 77.111 kg Physical Exam 2 Const: COMMON NORMALS: no acute distress ORIENTATION/CONSCIOUSNESS: Yes awake OTHER: Patient is nonverbal Resp: COMMON NORMALS: normal respiratory effort, No retractions and No use of accessory muscles AUSCULTATION: wheezes Cardio: COMMON NORMALS: regular rate, regular rhythm, S1 normal heart sound present and S2 normal heart sound present RATE: regular rate RHYTHM: r egular rhythm HEART SOUNDS: S1 normal heart sound present and S2 normal heart sound present GI: COMMON NORMALS: Normal to inspection, nondistended, normoactive bowel sounds present and non-tender Extremity: COMMON NORMALS: no pedal edema Data 01/07/24 05:30 01/07/24 05:30 Micro: Microbiology 01/05/24 17:31 Urine Culture - Preliminary Urine,Clean Catch Gram Negative Rods 01/05/24 17:16 Blood Culture - Preliminary Blood NEGATIVE TO DATE 01/05/24 17:20 Blood Culture - Preliminary Blood NEGATIVE TO DATE A&P Assessment and plan (1) Pneumonia: #Acute Hypoxic Respiratory Insufficiency -Hypoxia is in the setting of pneumonia. -Chest imaging shows subtle opacities in the right suprahilar and left infrahilar region -Patient received meropenem in the ER, will continue. -Wean oxygen ass tolerated ? Speech therapy soft, remains high aspiration risk, will consider modified barium swallow (2) Cystitis: -Continue antibiotics -Follow urine cultures (3) Alzheimer's dementia: -Stable -Patient non verbal at baseline (4) Essential hypertension: -Resume antihypertensives (5) Hyperlipidemia: Qualifiers: Hyperlipidemia type: unspecified Qualified Code(s): E78.5 - Hyperlipidemia, unspecified Plan Plan for today PT OT, neurochecks, continue meropenem, remains n.p.o., due to high aspiration risk, Attestations 2 Medical Necessity Statement*: Requires hospitalization for pneumonia, aspiration pneumonia, UTI Diagnoses Pneumonia J18.9 Cystitis N30.90 Alzheimer's dementia G30.9; F02.80 Essential hypertension I10 Hyperlipidemia, unspecified hyperlipidemia type E78.5 Hyperlipidemia type: unspecified
[2024-01-07] MEDS: enoxaparin 40 mg/0.4 mL Syringe SUBCUT (22:26)
[2024-01-08] VITALS (13 sets, daily range): BP systolic 102–131; BP diastolic 57–73; PULSE 74–99; RESP 16–21; TEMP 36.8–37.2; O2SAT 92–97
[2024-01-08 05:42] LABS: Basophils # 0.1 10^3/uL (0.0-0.1); Basophils % 0.7 %; Eosinophils # 0.2 10^3/uL (0.0-0.8); Eosinophils % 2.2 %; Hematocrit 34.6 % (36-47); Lymphocytes # 1.6 10^3/uL (0.8-4.8); Lymphocytes % 23.4 %; Mean Corpuscular HGB Conc 30.6 g/dL (30-55); Mean Corpuscular Hemoglobin 29.5 pg (27-33); Mean Corpuscular Volume 96.4 fl (85-98); Mean Platelet Volume 11.8 fL (7.4-10.4); Monocytes # 0.7 10^3/uL (0.2-0.9); Monocytes % 10.1 %; Neutrophils # 4.38 10^3/uL (1.8-7.7); Neutrophils % 63.2 %; Nucleated Red Blood Cells % 0 %; Platelet Count 220 10^3/cmm (157-399); Red Blood Count 3.59 10^6/uL (3.85-5.65); Red Cell Distribution Width 15.4 % (12.1-15.1); White Blood Count 6.93 10^3/uL (3.29-11.43)
[2024-01-08] MEDS: meropenem 1,000 MG in sodium chloride 0.9% (plus) 50 ML 100 MG IV ×3 (06:00→22:28)
[2024-01-08 06:04] LABS: Anion Gap 12.1 (5-19); Blood Urea Nitrogen 16 mg/dL (8-23); Calcium 8.6 mg/dL (8.5-10.5); Carbon Dioxide 30 mmol/L (22-29); Chloride 108 mmol/L (98-107); Creatinine Clr Calc Pharmacy 85.7207; Glucose 97 mg/dL (65-115); Osmolality Calculated 303 mOsm/kg (285-295); Potassium 4.1 mmol/L (3.5-5.1); Sodium 146 mmol/L (136-145)
[2024-01-08] MEDS: budesonide 0.5 mg/2 mL Neb INHALATION ×2 (07:36→20:07)
[2024-01-08] MEDS: ipratropium-albuterol 3 mL Neb INHALATION ×2 (07:39→20:07)
[2024-01-08] MEDS: atorvastatin 40 mg Tablet 20 MG PO (08:55)
[2024-01-08] MEDS: OLANZapine 10 mg TABLET PO ×2 (08:56→17:55)
[2024-01-08] MEDS: risperiDONE 1 mg Tablet PO ×2 (08:56→17:55)
[2024-01-08] MEDS: sertraline 100 mg Tablet PO (08:56)
--- NOTE | 2024-01-08 13:27 | P.PN_ITS ---
Subjective 2 Subjective: Patient was seen this morning, she is nonverbal, afebrile overnight, normotensive, Vitals/I&O/Wt Last Vital Signs Temp 98.4 F 01/08/24 08:00 Pulse 86 01/08/24 08:00 Resp 21 H 01/08/24 08:00 BP 123/73 01/08/24 08:00 Pulse Ox 97 01/08/24 08:00 O2 Del Method Nasal Cannula 01/08/24 08:00 O2 Flow Rate 3 01/08/24 07:36 01/07/24 01/08/24 01/08/24 22:59 06:59 14:59 Intake Total 50 / 50 50 / 100 50 / 50 Balance 50 / 50 50 / 100 50 / 50 Weight last 48 hrs Weight 95.844 kg Weight 96.814 kg Physical Exam 2 Const: COMMON NORMALS: no acute distress and patient oriented x3 Resp: COMMON NORMALS: normal respiratory effort, No retractions, No use of accessory muscles and clear to auscultation bilaterally AUSCULTATION: clear to auscultation bilaterally Cardio: COMMON NORMALS: regular rate, regular rhythm, S1 normal heart sound present and S2 normal heart sound present RATE: regular rate RHYTHM: r egular rhythm HEART SOUNDS: S1 normal heart sound present and S2 normal heart sound present GI: COMMON NORMALS: Normal to inspection, nondistended, normoactive bowel sounds present and non-tender Extremity: COMMON NORMALS: no pedal edema Neuro: COMMON NORMALS: patient oriented x3 Psych: COMMON NORMALS: mental status grossly normal Data 01/08/24 05:20 01/08/24 05:20 Micro: Microbiology 01/05/24 17:31 Urine Culture - Preliminary Urine,Clean Catch Gram Negative Rods A&P Assessment and plan (1) Pneumonia: #Acute Hypoxic Respiratory Insufficiency -Hypoxia is in the setting of pneumonia. -Chest imaging shows subtle opacities in the right suprahilar and left infrahilar region -Patient received meropenem in the ER, will continue. -Wean oxygen ass tolerated ? Speech therapy soft, remains high aspiration risk, will consider modified barium swallow (2) Cystitis: -Continue antibiotics -Follow urine cultures (3) Alzheimer's dementia: -Stable -Patient non verbal at baseline (4) Essential hypertension: -Resume antihypertensives (5) Hyperlipidemia: Qualifiers: Hyperlipidemia type: unspecified Qualified Code(s): E78.5 - Hyperlipidemia, unspecified Plan Plan for today PT OT, neurochecks, continue meropenem, seen by speech therapy, advance diet to dysphagia level 400% supervised feeds, as she has persistent high aspiration risk, ordered 5 modified barium swallow Attestations 2 Medical Necessity Statement*: Patient requires hospitalization for aspiration pneumonia, UTI Diagnoses Pneumonia J18.9 Cystitis N30.90 Alzheimer's dementia G30.9; F02.80 Essential hypertension I10 Hyperlipidemia, unspecified hyperlipidemia type E78.5 Hyperlipidemia type: unspecified
[2024-01-08] MEDS: enoxaparin 40 mg/0.4 mL Syringe SUBCUT (22:28)
[2024-01-09] VITALS (8 sets, daily range): BP systolic 112–147; BP diastolic 67–82; PULSE 72–97; RESP 18–19; TEMP 36.7–37.1; O2SAT 94–98
[2024-01-09 05:13] LABS: Basophils # 0.1 10^3/uL (0.0-0.1); Basophils % 0.5 %; Eosinophils # 0.1 10^3/uL (0.0-0.8); Eosinophils % 0.7 %; Hematocrit 37.9 % (36-47); Lymphocytes # 1.2 10^3/uL (0.8-4.8); Lymphocytes % 12.4 %; Mean Corpuscular HGB Conc 31.1 g/dL (30-55); Mean Corpuscular Hemoglobin 29.4 pg (27-33); Mean Corpuscular Volume 94.3 fl (85-98); Mean Platelet Volume 11.7 fL (7.4-10.4); Monocytes # 0.8 10^3/uL (0.2-0.9); Neutrophils # 7.35 10^3/uL (1.8-7.7); Neutrophils % 77.9 %; Nucleated Red Blood Cells % 0 %; Platelet Count 283 10^3/cmm (157-399); Red Blood Count 4.02 10^6/uL (3.85-5.65); Red Cell Distribution Width 15.2 % (12.1-15.1); White Blood Count 9.45 10^3/uL (3.29-11.43)
[2024-01-09 05:22] LABS: Anion Gap 15.3 (5-19); Blood Urea Nitrogen 14 mg/dL (8-23); Carbon Dioxide 29 mmol/L (22-29); Chloride 104 mmol/L (98-107); Creatinine Clr Calc Pharmacy 84.8619; Glucose 101 mg/dL (65-115); Osmolality Calculated 299 mOsm/kg (285-295); Potassium 4.3 mmol/L (3.5-5.1); Sodium 144 mmol/L (136-145)
[2024-01-09] MEDS: meropenem 1,000 MG in sodium chloride 0.9% (plus) 50 ML 100 MG IV ×2 (05:51→14:36)
[2024-01-09] MEDS: ipratropium-albuterol 3 mL Neb INHALATION (07:43)
[2024-01-09] MEDS: budesonide 0.5 mg/2 mL Neb INHALATION (07:43)
[2024-01-09] MEDS: risperiDONE 1 mg Tablet PO (08:42)
[2024-01-09] MEDS: OLANZapine 10 mg TABLET PO (08:42)
[2024-01-09] MEDS: sertraline 100 mg Tablet PO (08:42)
[2024-01-09] MEDS: atorvastatin 40 mg Tablet 20 MG PO (08:42)
--- NOTE | 2024-01-09 09:00 | FL_ITS ---
WS: [id number] Exam: FL barium swallow modifd [id number] Date/Time of Exam: 01/09/2024 9:00 AM Reason For Exam: Oral dysphagia Fluoroscopy time: 3min [phone] minutes # of spot films: Modified barium swallow was performed in conjunction with the speech therapy service. The patient tolerated all consistencies of barium mixture foodstuffs without penetration or aspiratio n. Oropharyngeal phase of swallowing was grossly normal. The patient refused to swallow the barium ta blet. FL/FL barium swallow modifd [id number] IMPRESSION: 1. No aspiration or penetration identified. A separate report and recommendations will follow from the speech therapy servi ce.
--- NOTE | 2024-01-09 09:30 | PC.CHAP ---
Pastoral Care Encounter/Spiritual Assessment Type of Contact [] Declined production officer visit [] Patient/Family/Request visit [] Outpatient visit [] Follow-up visit [] Physician referral [] Code/Alert [x] Routine visit [] Staff referral [] Actively dying [] Patient sleeping [] Family support [] [] Out of room [] Palliative care [] [] Receiving care in room [] Pre-surgical visit [] Trauma [] Long length of stay [] ICU visit [] Other: Relational/Emotional Strength [] Patient feels connected with others/family/visitors/staff [] Distress [] Loneliness/isolation [] Abandonment Spirituality of Patient [x] Person of Shireen [] Attends Rastafarian of their Shireen [x] Believes in Prayer [] Reads Bible or Gnosticism materials [] There are Spiritual issues to be addressed Architectural Administrative Assistant Interventions [x] Prayer [x] Active listening [] Non-anxious presence [] Spiritual/emotional support [] Crisis/trauma care [] Spiritual counseling [] Bereavement support [] Provided bereavement packet [x] Provided Bible/devotional materials [] Provided toy/stuffed animal, coloring book to patient or family member [] Provided Communion [] Anointing/Mascot [] Salvation [x] Completed spiritual assessment [] Other: Impact on Illness or Injury [] Angry [] Fearful [] Anxious [] Often cries [] Exhaustion [] Unable to work [] Unable to attend restorationist [] Unable to walk/stand [] Unable to read [] Unable to drive [] Unable to eat/drink [] Unable to sleep [] Unable to be with family [] Patient intubated [] Other: Summary Time spent with patient 10 min
--- NOTE | 2024-01-09 15:23 | P.DS_ITS ---
Discharge Providers Date of Admission: 01/06/24 14:10 Date of Discharge: January 09, 2024 Attending Provider at Admission: Sanjiv Betancourt MD Attending Provider at Discharge: Adrián Haq Primary Care Provider: Fantasma Mathews MD Diagnoses at Discharge Discharge Diagnosis (1) Pneumonia: Status: Acute (2) Cystitis: Status: Acute (3) Alzheimer's dementia: Status: Acute (4) Essential hypertension: Status: Acute (5) Hyperlipidemia: Status: Acute Qualifiers: Hyperlipidemia type: unspecified Qualified Code(s): E78.5 - Hyperlipidemia, unspecified Reason for Visit Reason for Visit: weakness, fever Hospital Course Hospital Course 78-year-old lady with history of Alzheimer's dementia, nonverbal at baseline, half-way resident was admitted for assessment management due to hypoxia, found to have pneumonia, urinary tract infection, encephalopathy, to certain treatment with meropenem, hypoxia has been improving, urine culture showed E. coli resistant to Unasyn, tetracycline and Bactrim. With concern for aspiration risk was additionally assessed by modified barium swallow which showed no aspiration or penetration but with difficulty noted with oral prep and oral phase. Continue aspiration precautions, dysphagia diet, minced and moist with regular liquids. She is to complete antibiotic course after discharge. We discussed her condition and plan with her guardian. Physical Exam Const: COMMON NORMALS: alert; negative for patient oriented x3 ORIENTATION/CONSCIOUSNESS: Yes awake HENMT: COMMON NORMALS: oropharynx normal Neck/C-Spine: COMMON NORMALS: no JVD Resp: COMMON NORMALS: normal respiratory effort and clear to auscultation bilaterally AUSCULTATION: clear to auscultation bilaterally Cardio: COMMON NORMALS: no JVD, regular rhythm, S1 normal heart sound present, S2 normal heart sound present and No murmurs present (Cardio) RHYTHM: regular rhythm HEART SOUNDS: S1 normal heart sound present and S2 normal heart sound present GI: COMMON NORMALS: Normal to inspection, nondistended, normoactive bowel sounds present, Soft to palpation and non-tender PALPATION: Yes Soft to palpation Extremity: COMMON NORMALS: no joint enlargement and no pedal edema Neuro: COMMON NORMALS: negative for patient oriented x3 SENSORIUM/ORIENTATION: Yes alert Discharge Data Studies Completed and Pending Completed Studies During Hospitalization Category Date Time Status [place] barium swallow modifd [id number] Routine Exams 01/09/24 09:00 Completed XR chest 1V portable [id number] Stat Exams 01/05/24 16:38 Completed Pending at discharge Category Date Time Status Blood Culture Stat Lab 01/05/24 17:16 Results Radiology Impressions Chest X-Ray 01/05/24 16:38 IMPRESSION: Subtle opacities in the right suprahilar station and left infrahilar station. Modified Barium Swallow 01/09/24 09:00 IMPRESSION: 1. No aspiration or penetration identified. A separate report and recommendations will follow from the speech therapy service. Laboratory Results WBC 9.45 10^3/uL (3.29-11.43) 01/09/24 04:53 RBC 4.02 10^6/uL (3.85-5.65) 01/09/24 04:53 Hgb 11.80 g/dL (11.27-16.99) 01/09/24 04:53 Hct 37.9 % (36-47) 01/09/24 04:53 MCV 94.3 fl (85-98) 01/09/24 04:53 MCH 29.4 pg (27-33) 01/09/24 04:53 MCHC 31.1 g/dL (30-55) 01/09/24 04:53 RDW 15.2 % (12.1-15.1) H 01/09/24 04:53 Plt Count 283 10^3/cmm (157-399) 01/09/24 04:53 MPV 11.7 fL (7.4-10.4) H 01/09/24 04:53 Neut % (Auto) 77.9 % 01/09/24 04:53 Lymph % (Auto) 12.4 % 01/09/24 04:53 [place] % (Auto) 8.0 % 01/09/24 04:53 Eos % (Auto) 0.7 % 01/09/24 04:53 Baso % (Auto) 0.5 % 01/09/24 04:53 Neut # (Auto) 7.35 10^3/uL (1.8-7.7) 01/09/24 04:53 Lymph # (Auto) 1.2 10^3/uL (0.8-4.8) 01/09/24 04:53 [place] # (Auto) 0.8 10^3/uL (0.2-0.9) 01/09/24 04:53 Eos # (Auto) 0.1 10^3/uL (0.0-0.8) 01/09/24 04:53 Baso # (Auto) 0.1 10^3/uL (0.0-0.1) 01/09/24 04:53 Nucleated RBC % (auto) 0 % 01/09/24 04:53 Nucleated RBCs # 0.0 /100WBC 01/09/24 04:53 Sodium 144 mmol/L (136-145) 01/09/24 04:53 Potassium 4.3 mmol/L (3.5-5.1) 01/09/24 04:53 Chloride 104 mmol/L (98-107) 01/09/24 04:53 Carbon Dioxide 29 mmol/L (22-29) 01/09/24 04:53 Anion Gap 15.3 (5-19) 01/09/24 04:53 BUN 14 mg/dL (8-23) 01/09/24 04:53 Creatinine 0.6 mg/dL (0.5-0.9) 01/09/24 04:53 GFR Calculation Not Reportable 01/09/24 04:53 Glucose 101 mg/dL (65-115) 01/09/24 04:53 Calculated Osmolality 299 mOsm/kg (285-295) H 01/09/24 04:53 Lactic Acid 0.7 mmol/L (0.5-2.2) 01/05/24 17:20 Calcium 9.0 mg/dL (8.5-10.5) 01/09/24 04:53 Total Bilirubin 0.6 mg/dL (0.15-1.2) 01/05/24 17:20 AST 27 U/L (0-32) 01/05/24 17:20 ALT 17 U/L (0-33) 01/05/24 17:20 Alkaline Phosphatase 109 U/L (35-105) H 01/05/24 17:20 Troponin T Baseline 27 ng/L (0-10) H 01/06/24 11:41 Troponin T 120 Minute 26.54 ng/L (0-10) H 01/06/24 13:54 Delta Troponin T -0.46 ABS# (0-10) L 01/06/24 13:54 Troponin T Hi Sens 6Hr 26.20 ng/L (0-10) H 01/06/24 17:55 Troponin T Hi Sens 6Hr Delta -0.80 ng/L (0-12) L 01/06/24 17:55 NT-Pro-B Natriuret Pep 433 pg/mL (0-450) 01/05/24 17:20 Total Protein 7.2 g/dL (6.6-8.7) 01/05/24 17:20 Albumin 3.8 g/dL (3.5-5.2) 01/05/24 17:20 Globulin 3.4 g/dL (1.3-4.6) 01/05/24 17:20 Procalcitonin 0.10 ng/mL (0-0.5) 01/05/24 17:20 Urine Color Yellow (Yellow) 01/05/24 17:31 Urine Appearance Clear (CLEAR) 01/05/24 17:31 Urine pH 5 (5-7) 01/05/24 17:31 Ur Specific [place] 1.015 (1.005-1.030) 01/05/24 17:31 Urine Protein Neg (Negative) 01/05/24 17:31 Urine Glucose (UA) Norm (Normal) 01/05/24 17:31 Urine Ketones 1+ (Negative) H 01/05/24 17:31 Urine Blood 2+ (Negative) H 01/05/24 17:31 Urine Nitrate Negative (Negative) 01/05/24 17:31 Urine Bilirubin Neg (Negative) 01/05/24 17:31 Urine Urobilinogen Norm mg/dL (Negative) 01/05/24 17:31 Ur Leukocyte Esterase Trace (Negative) H 01/05/24 17:31 Urine RBC None /hpf (0-2) 01/05/24 17:31 Urine WBC 15-25 /hpf (0-5) H 01/05/24 17:31 Ur Squamous Epith Cells 0-4 /hpf (0-5) H 01/05/24 17:31 Amorphous Sediment Not Reportable 01/05/24 17:31 Urine Bacteria 2+ /hpf (NONE) H 01/05/24 17:31 Hyaline Casts 0-4 /lpf H 01/05/24 17:31 Urine Mucus 1+ /hpf 01/05/24 17:31 Vitals Last Vital Signs Temp 98.4 F 01/09/24 12:00 Pulse 88 01/09/24 12:00 Resp 18 01/09/24 12:00 BP 126/67 01/09/24 12:00 Pulse Ox 97 01/09/24 12:00 O2 Del Method Nasal Cannula 01/09/24 12:00 O2 Flow Rate 2 01/09/24 08:00 Discharge Plan Discharge Patient Disposition: Xfer SNF Condition: Stable Prescriptions: New cefdinir 300 mg capsule 300 mg PO BID Qty: 14 0RF Continued senna 8.6 mg capsule 8.6 mg PO DAILY PRN (Reason: Constipation) amlodipine [Norvasc] 5 mg tablet 5 mg PO DAILY simvastatin [Zocor] 20 mg tablet 20 mg PO DAILY acetaminophen [Tylenol Arthritis Pain] 650 mg tablet extended release 650 mg PO Q4H PRN (Reason: PAIN OR ELEVATED TEMP) bisacodyl 5 mg tablet 10 mg PO DAILY PRN (Reason: Constipation) loratadine [Claritin] 10 mg tablet 10 mg PO DAILY naltrexone 50 mg tablet 25 mg PO DAILY sertraline 100 mg tablet 100 mg PO DAILY olanzapine 10 mg tablet 10 mg PO BID Milk of Magnesia 400 mg/5 mL Suspension 30 mg PO DAILY PRN (Reason: Constipation) alum-mag hydroxide-simeth 200-200-20 mg/5 mL Suspension 30 ml PO Q4H PRN (Reason: UPSET STOMACH) Rx Instructions: administer between meals and at bedtime nystatin 100,000 unit/gram powder See Rx Instructions .ROUTE .COMPLEX Rx Instructions: APPLY UNDER BOTH BREASTS AND UNDER ABDOMEN FOLDS TWICE DAILY AND NEEDED UNTIL HEALED. risperidone 1 mg tablet 1 mg PO BID Vision Tablet 1 tab PO DAILY guaifenesin 100 mg/5 mL Liquid 200 mg PO Q4H PRN (Reason: Congestion) Discharge Orders: Discharge Order (Routine); Ordered 01/09/24 Ordered By: Adrián Haq Referrals: [facility] [Outside] Fantasma Mathews MD [Primary Care Provider] - 4-7 days Discharge Diet: As Directed Discharge Activity: Resume usual activity and Increase activity as tolerated Patient Instructions: Cefdinir (By mouth), Opioid Safety, Pain Management Activity Restrictions/Additional Instructions: Complete antibiotic course for UTI, pneumonia. Continue aspiration precautions, dysphagia diet, minced and moist with regular liquids. Continue 1 L nasal cannula oxygen support, wean down as tolerating. Target oxygen saturation 92%. Discharge Attestations Time Spent in Discharge Care*: greater than 30 min Quality Metrics Clinical Quality Measures [ No reported AMI, CVA or VTE this stay] Coding Level of Care Code 89210 Total time (in minutes) for Discharge: 45 Diagnoses Pneumonia J18.9 Cystitis N30.90 Alzheimer's dementia G30.9; F02.80 Essential hypertension I10 Hyperlipidemia, unspecified hyperlipidemia type E78.5 Hyperlipidemia type: unspecified
== END 2024-01-09 16:10 | disposition skilled nursing facility (03) | DRG 193 ==
LOC: ER 18:34 → MEDSURG 19:11
PROVIDERS: Admitting Provider Family Medicine; Emergency Provider Family Medicine; PCP Internal Medicine; Visit Provider Internal Medicine
DX: J18.9 Pneumonia, unspecified organism (principal); J96.01 Acute respiratory failure with hypoxia; Z16.29 Resistance to other single specified antibiotic; G93.40 Encephalopathy, unspecified; N30.90 Cystitis, unspecified without hematuria; B96.20 Unspecified Escherichia coli [E. coli] as the cause of diseases classified elsewhere; G30.9 Alzheimer's disease, unspecified; F02.80 Dementia in other diseases classified elsewhere, unspecified severity, without behavioral disturbance, psychotic disturbance, mood disturbance, and anxiety; I10 Essential (primary) hypertension; E78.5 Hyperlipidemia, unspecified
CPT/HCPCS: 12345; 36415; 71045; 74230; 80048; 80053; 81001; 83605; 83880; 84145; 84484; 85025; 87040; 87077; 87086; 87186; 92523; 92526; 92610; 92611; 93005; 94640; 96365; 96367; 96372; 97116; 97163; 97165; 97530; 97535; 99285; G0378; J1650; J2185; J7626